=== PATIENT | male | born 1940 | race Caucasian/White ===

== ENCOUNTER 2016-03-18 11:38 | Inpatient (IN) | payer MEDICARE, MEDICAID ==
[~2016-03-18] VITALS: Ht 172.7 cm; Wt 62.1 kg
[2016-03-18] MEDS ORDERED: NALOXONE PREFILLED SYRINGE 2 MG/2 ML SYRINGE ONE (11:48)
[2016-03-18 11:55] LABS: BASOPHILS % (AUTO) 0.8 % (0.0-2.0); DIFF TOTAL % 100 %; EOSINOPHILS # (AUTO) 0.6 /CMM (0.0-0.7); HEMATOCRIT 31 % (39-51); HEMOGLOBIN 10.1 g/dL (13.5-17.5); LYMPHOCYTES # (AUTO) 1.4 /CMM (0.8-4.8); LYMPHOCYTES % (AUTO) 24.6 % (20.0-44.0); MEAN CORPUSCULAR HEMOGLOBIN 32 PG (26.0-33.0); MEAN CORPUSCULAR HGB CONC 33 g/dl (31.0-36.0); MEAN CORPUSCULAR VOLUME 97 fL (80-96); MONOCYTES # (AUTO) 0.3 /CMM (0.1-1.30); MONOCYTES % (AUTO) 5.3 % (2.0-12.0); NEUTROPHILS # (AUTO) 3.2 /CMM (1.8-8.9); NEUTROPHILS % (AUTO) 59.3 % (43.0-81.0); PLATELET COUNT (AUTO) 191 /CMM (150-450); WHITE BLOOD COUNT (AUTO) 5.5 K/uL (4.3-11.0)
[2016-03-18] MEDS ORDERED: NALOXONE HCL 0.4 MG/ML AMPUL IV ONE (12:00)
[2016-03-18 12:29] LABS: ANION GAP 13 (5-14); CALCIUM, SERUM 8.9 mg/dL (8.5-10.1); CARBON DIOXIDE 26 mmol/L (21-32); CHLORIDE 105 mmol/L (98-107); CREATININE 1.5 mg/dL (0.6-1.3); GLUCOSE 122 mg/dL (74-106); POTASSIUM 4.5 mmol/L (3.5-5.1); SODIUM SERUM 139 mmol/L (136-145); UREA NITROGEN, BLOOD 21 mg/dL (7-18)
[2016-03-18 12:32] LABS: INR 0.99 (0.87-1.13); PROTHROMBIN TIME 10.4 SECS (9.5-12.7)
[2016-03-18 12:35] LABS: ALANINE AMINOTRANSFERASE 34 U/L (12-78); ALBUMIN 3.4 g/dL (3.4-5.0); ASPARTATE AMINOTRANSFERASE 29 U/L (15-37); BILIRUBIN,DIRECT 0.1 mg/dL (0.0-0.2); BILIRUBIN,TOTAL 0.3 mg/dL (0.2-1.0); INDIRECT BILIRUBIN 0.2 mg/dL (0.0-1.1)
[2016-03-18 12:37] LABS: TROPONIN I < 0.017 ng/mL (0.00-0.056)
[2016-03-18] MEDS ORDERED: hydrALAZINE HCL IV 20 MG VIAL ONE (12:39)
[2016-03-18 12:52] LABS: KETONES,URINE Negative (NEGATIVE); LEUKOCYTE ESTERASE ,URINE Small (NEGATIVE)
[2016-03-18] MEDS ORDERED: IOHEXOL-350 100 ML VIAL IV ONE (12:52)
[2016-03-18] MEDS ORDERED: IV NS 0.9% 250 ML IV ONE (12:52)
[2016-03-18 12:53] LABS: ADD UA MICROSCOPIC YES
[2016-03-18 12:54] LABS: ADD URINE CULTURE NO
[2016-03-18] MEDS ORDERED: CEFTRIAXONE 1GM BAG (ER ONLY) 50 ML IV ONE ×2 (13:00→13:41)
[2016-03-18] MEDS ORDERED: hydrALAZINE HCL IV 20 MG VIAL IV ONE (13:00)
[2016-03-18] MEDS ORDERED: IV SET PRIMARY PUMP SET 1 EA INFUS.SET MC ONE ×2 (13:41→20:06)
[2016-03-18] MEDS ORDERED: ACETAMINOPHEN 325 MG TABLET PO PRN (14:00)
[2016-03-18] MEDS ORDERED: Z GUARD REMEDY 2 OZ OINT TP PRN (14:00)
[2016-03-18] MEDS ORDERED: MAG HYDROX/AL HYDROX/SIMETH 30 ML UDC PO PRN (14:00)
[2016-03-18] MEDS ORDERED: ZOLPIDEM TARTRATE 5 MG TABLET PO PRN (14:00)
[2016-03-18] MEDS ORDERED: MAGNESIUM HYDROXIDE 30 ML UDC PO PRN (14:00)
[2016-03-18] MEDS ORDERED: ONDANSETRON HCL/PF 4 MG/2 ML VIAL IVP PRN (14:00)
[2016-03-18] MEDS ORDERED: LABETALOL HCL IV 100MG VIAL ONE (14:14)
[2016-03-18] MEDS ORDERED: LABETALOL HCL IV 100MG VIAL IV ONE (14:30)
[2016-03-18] MEDS ORDERED: ASPIRIN 325 MG TABLET PO ONE (14:30)
[2016-03-18 16:00] VITALS: BP 176/85
[2016-03-18] MEDS: ENOXAPARIN SODIUM 40 MG/0.4 ML DISP.SYRIN SQ SCH (18:06)
[2016-03-18 20:00] VITALS: BP 145/76
[2016-03-18] MEDS: IV NS 0.9% 1,000 ML IV PRN (20:11)
[2016-03-18] MEDS ORDERED: MORPHINE SULFATE INJ 2 MG/ML DISP.SYRIN ONE (21:27)
[2016-03-18] MEDS: MORPHINE SULFATE INJ 2 MG/ML DISP.SYRIN IV PRN (21:34)
[2016-03-18] MEDS: ATORVASTATIN 40 MG TABLET PO SCH (21:35)
[2016-03-18] MEDS ORDERED: LORAZEPAM INJ 2 MG/ML VIAL ONE (22:40)
[2016-03-18] MEDS ORDERED: LORAZEPAM INJ 2 MG/ML VIAL IV ONE (23:00)
[2016-03-19] VITALS (8 sets, daily range): BP systolic 106–174; BP diastolic 65–81
[2016-03-19] MEDS ORDERED: MORPHINE SULFATE INJ 2 MG/ML DISP.SYRIN ONE (00:33)
[2016-03-19] MEDS: MORPHINE SULFATE INJ 2 MG/ML DISP.SYRIN IV PRN ×5 (00:44→21:33)
[2016-03-19] MEDS ORDERED: HYDROMORPHONE 1 MG/1 ML DISP.SYRIN ONE (05:14)
[2016-03-19] MEDS ORDERED: HYDROMORPHONE 1 MG/1 ML DISP.SYRIN IV PRN (05:30)
[2016-03-19] MEDS: PANTOPRAZOLE 40 MG TABLET.DR PO SCH (07:28)
[2016-03-19 08:04] LABS: BASOPHILS % (AUTO) 0.5 % (0.0-2.0); DIFF TOTAL % 100 %; EOSINOPHILS # (AUTO) 0.3 /CMM (0.0-0.7); EOSINOPHILS % (AUTO) 4.5 % (0.0-6.0); HEMATOCRIT 27 % (39-51); HEMOGLOBIN 9.2 g/dL (13.5-17.5); LYMPHOCYTES # (AUTO) 0.9 /CMM (0.8-4.8); LYMPHOCYTES % (AUTO) 16.4 % (20.0-44.0); MEAN CORPUSCULAR HEMOGLOBIN 32 PG (26.0-33.0); MEAN CORPUSCULAR HGB CONC 34 g/dl (31.0-36.0); MEAN CORPUSCULAR VOLUME 95 fL (80-96); MONOCYTES # (AUTO) 0.4 /CMM (0.1-1.30); MONOCYTES % (AUTO) 6.1 % (2.0-12.0); NEUTROPHILS # (AUTO) 4.2 /CMM (1.8-8.9); NEUTROPHILS % (AUTO) 72.5 % (43.0-81.0); PLATELET COUNT (AUTO) 196 /CMM (150-450); RED BLOOD CELL COUNT(AUTO) 2.89 MIL/uL (4.5-6.0); WHITE BLOOD COUNT (AUTO) 5.8 K/uL (4.3-11.0)
[2016-03-19] MEDS ORDERED: Z GUARD REMEDY 2 OZ OINT TP PRN (08:30)
[2016-03-19] MEDS ORDERED: HYDROGEL DRESSING 90 GM TUBE TP PRN (08:30)
[2016-03-19 08:32] LABS: THYROID STIMULATING HORMONE 1.137 uIU/mL (0.358-3.74)
[2016-03-19 08:50] LABS: CALCIUM, SERUM 8.4 mg/dL (8.5-10.1); CREATININE 1.3 mg/dL (0.6-1.3); PHOSPHORUS 3.7 mg/dL (2.5-4.9); POTASSIUM 4.4 mmol/L (3.5-5.1)
[2016-03-19] MEDS: Z GUARD REMEDY 2 OZ OINT TP SCH (09:01)
[2016-03-19] MEDS: HYDROGEL DRESSING 90 GM TUBE TP SCH (09:01)
[2016-03-19] MEDS: HYDROCODONE/APAP 5/325MG 1 EACH TABLET PO PRN ×3 (10:22→20:08)
[2016-03-19] MEDS: QUETIAPINE FUMARATE 25 MG TABLET PO SCH ×2 (10:23→17:14)
[2016-03-19] MEDS ORDERED: IV SET PRIMARY PUMP SET 1 EA INFUS.SET MC ONE (10:27)
[2016-03-19] MEDS ORDERED: ASPIRIN EC 325 MG TABLET.DR PO STA (14:59)
[2016-03-19] MEDS: MUPIROCIN OINT 2% 22 GM TUBE TP SCH (17:13)
[2016-03-19] MEDS: ENOXAPARIN SODIUM 40 MG/0.4 ML DISP.SYRIN SQ SCH (21:32)
[2016-03-19] MEDS: ATORVASTATIN 40 MG TABLET PO SCH (21:33)
[2016-03-20] VITALS: BP 165/66
[2016-03-20 04:00] VITALS: BP 192/78
[2016-03-20] MEDS: MUPIROCIN OINT 2% 22 GM TUBE TP SCH ×2 (04:41→18:05)
[2016-03-20] MEDS: MORPHINE SULFATE INJ 2 MG/ML DISP.SYRIN IV PRN ×4 (05:15→23:56)
[2016-03-20] MEDS: IV NS 0.9% 1,000 ML IV PRN ×2 (05:32→18:04)
[2016-03-20] MEDS: HYDROCODONE/APAP 5/325MG 1 EACH TABLET PO PRN ×2 (06:48→11:13)
[2016-03-20 08:00] VITALS: BP 155/35
[2016-03-20] MEDS: ESCITALOPRAM OXALATE (10 MG) 10 MG TABLET PO SCH (09:15)
[2016-03-20] MEDS: PANTOPRAZOLE 40 MG TABLET.DR PO SCH (09:15)
[2016-03-20] MEDS: QUETIAPINE FUMARATE 25 MG TABLET PO SCH ×2 (09:15→18:04)
[2016-03-20] MEDS: ASPIRIN EC 81 MG TABLET.DR PO SCH (09:15)
[2016-03-20] MEDS: HYDROGEL DRESSING 90 GM TUBE TP SCH (09:16)
[2016-03-20] MEDS: Z GUARD REMEDY 2 OZ OINT TP SCH (09:18)
[2016-03-20 12:00] VITALS: BP 134/40
[2016-03-20 12:20] LABS: BASOPHILS % (AUTO) 0.8 % (0.0-2.0); DIFF TOTAL % 100 %; EOSINOPHILS # (AUTO) 0.2 /CMM (0.0-0.7); EOSINOPHILS % (AUTO) 6.8 % (0.0-6.0); HEMATOCRIT 25 % (39-51); HEMOGLOBIN 8.5 g/dL (13.5-17.5); LYMPHOCYTES # (AUTO) 0.7 /CMM (0.8-4.8); LYMPHOCYTES % (AUTO) 19.7 % (20.0-44.0); MEAN CORPUSCULAR HEMOGLOBIN 32 PG (26.0-33.0); MEAN CORPUSCULAR HGB CONC 33 g/dl (31.0-36.0); MEAN CORPUSCULAR VOLUME 95 fL (80-96); MONOCYTES # (AUTO) 0.3 /CMM (0.1-1.30); MONOCYTES % (AUTO) 7.2 % (2.0-12.0); NEUTROPHILS # (AUTO) 2.4 /CMM (1.8-8.9); NEUTROPHILS % (AUTO) 65.5 % (43.0-81.0); PLATELET COUNT (AUTO) 161 /CMM (150-450); RED BLOOD CELL COUNT(AUTO) 2.68 MIL/uL (4.5-6.0); WHITE BLOOD COUNT (AUTO) 3.6 K/uL (4.3-11.0)
[2016-03-20 12:22] LABS: CALCIUM, SERUM 7.5 mg/dL (8.5-10.1); CREATININE 1.3 mg/dL (0.6-1.3)
[2016-03-20 16:00] VITALS: BP 194/70
[2016-03-20] MEDS ORDERED: ASPI-991 PO (16:24)
[2016-03-20] MEDS ORDERED: ATOR40TA PO (16:24)
[2016-03-20] MEDS ORDERED: hydrALAZINE HCL 50 MG TABLET PO SCH (19:00)
[2016-03-20] MEDS: METOPROLOL SUCCINATE 25 MG TAB.SR.24H PO SCH (19:16)
[2016-03-20 20:00] VITALS: BP 170/81
[2016-03-20] MEDS ORDERED: hydrALAZINE HCL 50 MG TABLET PO ONE (20:30)
[2016-03-20] MEDS: ATORVASTATIN 40 MG TABLET PO SCH (21:02)
[2016-03-20] MEDS: ENOXAPARIN SODIUM 40 MG/0.4 ML DISP.SYRIN SQ SCH (21:02)
[2016-03-21] VITALS (7 sets, daily range): BP systolic 108–202; BP diastolic 59–102
[2016-03-21] MEDS: MORPHINE SULFATE INJ 2 MG/ML DISP.SYRIN IV PRN (04:28)
[2016-03-21] MEDS: MUPIROCIN OINT 2% 22 GM TUBE TP SCH ×2 (04:29→15:48)
[2016-03-21] MEDS: QUETIAPINE FUMARATE 25 MG TABLET PO SCH ×2 (09:00→17:00)
[2016-03-21] MEDS: Z GUARD REMEDY 2 OZ OINT TP SCH (09:00)
[2016-03-21] MEDS: HYDROGEL DRESSING 90 GM TUBE TP SCH (09:00)
[2016-03-21] MEDS: PANTOPRAZOLE 40 MG TABLET.DR PO SCH (10:11)
[2016-03-21] MEDS: METOPROLOL SUCCINATE 25 MG TAB.SR.24H PO SCH (10:12)
[2016-03-21] MEDS: ASPIRIN EC 81 MG TABLET.DR PO SCH (10:13)
[2016-03-21] MEDS: ESCITALOPRAM OXALATE (10 MG) 10 MG TABLET PO SCH (10:13)
[2016-03-21] MEDS: hydrALAZINE HCL 50 MG TABLET PO SCH ×3 (10:14→17:00)
[2016-03-21] MEDS ORDERED: VALSARTAN 80 MG TABLET PO SCH (10:30)
[2016-03-21] MEDS ORDERED: Hydralazine Hcl PO (12:19)
[2016-03-21] MEDS ORDERED: Valsartan PO (12:19)
[2016-03-21] MEDS ORDERED: IV NS 0.9% 250 ML IV ONE (13:36)
[2016-03-21] MEDS ORDERED: CT SWABBABLE VALVE TRANS SET 1 EA INFUS.SET MC ONE (13:36)
[2016-03-21] MEDS ORDERED: IOHEXOL-350 100 ML VIAL IV ONE (13:36)
[2016-03-21] MEDS ORDERED: CLONIDINE HCL 0.1 MG TABLET PO SCH ×2 (18:00)
[2016-03-21] MEDS: HYDROCODONE/APAP 5/325MG 1 EACH TABLET PO PRN (19:58)
[2016-03-21] MEDS: ENOXAPARIN SODIUM 40 MG/0.4 ML DISP.SYRIN SQ SCH (20:00)
== END 2016-03-21 21:23 | DRG 56 ==
LOC: ER 11:42 → TELE-TD 14:23 → TELE1 03-19 10:19 → MEDSG1 03-21 18:29
DX: I69.354 Hemiplegia and hemiparesis following cerebral infarction affecting left non-dominant side (principal); N17.0 Acute kidney failure with tubular necrosis; N39.0 Urinary tract infection, site not specified; I12.9 Hypertensive chronic kidney disease with stage 1 through stage 4 chronic kidney disease, or unspecified chronic kidney disease; N18.9 Chronic kidney disease, unspecified; N40.0 Benign prostatic hyperplasia without lower urinary tract symptoms; R29.810 Facial weakness; F32.9 Major depressive disorder, single episode, unspecified; D64.9 Anemia, unspecified; F10.20 Alcohol dependence, uncomplicated; L89.159 Pressure ulcer of sacral region, unspecified stage; F01.50 Vascular dementia, unspecified severity, without behavioral disturbance, psychotic disturbance, mood disturbance, and anxiety; I27.2 Other secondary pulmonary hypertension; I65.21 Occlusion and stenosis of right carotid artery; I66.09 Occlusion and stenosis of unspecified middle cerebral artery; I66.29 Occlusion and stenosis of unspecified posterior cerebral artery; R13.10 Dysphagia, unspecified
CPT/HCPCS: 36415; 70450-TC; 70496-TC; 70498-TC; 70551-TC; 71010-TC; 80048-TC; 80061-TC; 80076-TC; 81000-TC; 82962-TC; 83605-TC; 83735-TC; 84100-TC; 84443-TC; 84484-TC; 85025-TC; 85730-TC; 87040-TC; 87081-TC; 92611-TC; 93307-TC; 93880-TC; 94799-TC; 97001-TC; 97003-TC; A4606; A6248; J0360; J0696; J1170; J1650; J2060; J2270; J2310; J3490; J7030; J7050; Q9967; Z7610

== ENCOUNTER 2017-02-18 07:19 | Emergency (ER) | payer MEDICARE, MEDICAID ==
[~2017-02-18] VITALS: Ht 172.7 cm; Wt 63.5 kg
[~2017-02-18 07:19] MED LIST: ASPI-1152 PO; ATOR40TA PO; Hydralazine Hcl PO; Valsartan PO
--- NOTE | 2017-02-18 07:35 | NUR ---
pt bib ra from so c/o AMS per facility. pt is a/ox2 upon assessment, but repeatedly yelling and unooperative despite education, reorientation, and mutliple explanations. pt is pointing to and tugging on penis. no uop or stool noted in diaper. resp even unlabored, saturating 99-100% on room air. skin cool, mottled. with chronic left sided hemiparesis. in er bed 07 on monitor.
--- NOTE | 2017-02-18 07:40 | NUR ---
attempted to obtain EKG with EMT. pt moving too much despite education on need to stay still. will retry later. notified.
[2017-02-18] MEDS: IV NS 0.9% 1,000 ML BAG IV ONE ×2 (07:53→09:49)
--- NOTE | 2017-02-18 07:57 | NUR ---
no urine output obtained by in and out cath. notified. will try again later.
[2017-02-18 08:05] LABS: CALCIUM, SERUM 8.1 mg/dL (8.5-10.1); CARBON DIOXIDE 25 mmol/L (21-32); CHLORIDE 103 mmol/L (98-107); CREATININE 2.4 mg/dL (0.6-1.3); EOSINOPHILS % (AUTO) 0.2 % (0.0-6.0); GLUCOSE 222 mg/dL (74-106); HEMATOCRIT 27 % (39-51); MEAN CORPUSCULAR HEMOGLOBIN 33 PG (26.0-33.0); MEAN CORPUSCULAR HGB CONC 34 g/dl (31.0-36.0); MEAN CORPUSCULAR VOLUME 98 fL (80-96); MONOCYTES # (AUTO) 0.7 /CMM (0.1-1.30); MONOCYTES % (AUTO) 2.7 % (2.0-12.0); NEUTROPHILS # (AUTO) 22.2 /CMM (1.8-8.9); NEUTROPHILS % (AUTO) 89.1 % (43.0-81.0); PLATELET COUNT (AUTO) 296 /CMM (150-450); RDW COEFFICIENT OF VARIATION 13.2 (11.5-15.0); RED BLOOD CELL COUNT(AUTO) 2.73 MIL/uL (4.5-6.0); SODIUM SERUM 138 mmol/L (136-145); UREA NITROGEN, BLOOD 27 mg/dL (7-18); WHITE BLOOD COUNT (AUTO) 24.9 K/uL (4.3-11.0)
[2017-02-18] MEDS ORDERED: CRAN3875 PO (08:07)
[2017-02-18] MEDS ORDERED: QUET25TA PO (08:07)
[2017-02-18] MEDS ORDERED: DOCU-141 PO (08:07)
[2017-02-18] MEDS ORDERED: THIA100T74 PO (08:07)
[2017-02-18] MEDS ORDERED: HYDR-4077 PO (08:07)
[2017-02-18] MEDS ORDERED: ATOR40TA PO (08:07)
[2017-02-18] MEDS ORDERED: CRAN425C6 PO (08:07)
[2017-02-18] MEDS ORDERED: ACET-868 PO (08:07)
[2017-02-18] MEDS ORDERED: CALC500T51 PO (08:07)
[2017-02-18] MEDS ORDERED: CLON0.5T PO (08:07)
[2017-02-18] MEDS ORDERED: CLOP75TA15 PO (08:07)
[2017-02-18] MEDS ORDERED: HYDR-552 PO (08:07)
[2017-02-18] MEDS ORDERED: BISA10SU8 RC (08:07)
[2017-02-18] MEDS ORDERED: ASPI-1169 PO (08:07)
[2017-02-18] MEDS ORDERED: MULT-213 PO (08:07)
[2017-02-18] MEDS ORDERED: METO-358 PO (08:07)
[2017-02-18] MEDS ORDERED: LACT1CAP61 PO (08:07)
[2017-02-18] MEDS ORDERED: IPRA3AMP IH (08:07)
[2017-02-18] MEDS ORDERED: SENN-167 PO (08:07)
[2017-02-18] MEDS ORDERED: FOLI1TAB16 PO (08:07)
[2017-02-18] MEDS ORDERED: ASCO-340 PO (08:07)
[2017-02-18 08:10] LABS: ALANINE AMINOTRANSFERASE 13 U/L (12-78); ALBUMIN 3.4 g/dL (3.4-5.0); ALKALINE PHOSPHATASE 65 U/L (46-116); ASPARTATE AMINOTRANSFERASE 15 U/L (15-37); BILIRUBIN,DIRECT 0.1 mg/dL (0.0-0.2); BILIRUBIN,TOTAL 0.3 mg/dL (0.2-1.0); INR 0.91 (0.87-1.13); PROTHROMBIN TIME 9.5 SECS (9.5-12.7); TOTAL PROTEIN, SERUM 7.3 g/dL (6.4-8.2)
[2017-02-18 08:12] LABS: TROPONIN I 0.018 ng/mL (0.00-0.056)
[2017-02-18 08:12] LABS: ABG BASE EXCESS -4.2 mmol/L; ABG PCO2 29.8 mmHg (35.0-45.0); ABG PH 7.432 (7.350-7.450); ABG PO2 93.2 mmHg (75.0-100.0); AaDO2 20.8 mmHg; COHb 0.3 % (0.5-1.5); MetHb 0.8 % (0.0-1.5); O2Hb 94.9 % (94.0-97.0); SITE, ABG Right Radial; VENT MODE, BG Room Air
[2017-02-18 08:17] LABS: BAND % (MANUAL) 2 % (0.0-5.0); LYMPHOCYTES % (MANUAL) 14 % (16-48); MONOCYTES % (MANUAL) 4 % (0-11.0); NEUTROPHILS % (MANUAL) 80 (42-76)
[2017-02-18] MEDS ORDERED: ONDANSETRON HCL/PF 4 MG/2 ML VIAL ONE (08:29)
[2017-02-18] MEDS ORDERED: MORPHINE SULFATE INJ 2 MG/ML DISP.SYRIN ONE ×2 (08:30→08:46)
[2017-02-18] MEDS: MORPHINE SULFATE INJ 10 MG/ML DISP.SYRIN IV ONE (08:33)
[2017-02-18] MEDS: ONDANSETRON HCL/PF 4 MG/2 ML VIAL IV ONE (08:34)
[2017-02-18] MEDS: MORPHINE SULFATE INJ 4 MG/ML DISP.SYRIN IV ONE (08:48)
--- NOTE | 2017-02-18 08:49 | NUR ---
PT STILL C/O ABD PAIN AFTER MORPHINE ADMIN; NOW C/O UPPER ABD PAIN INSTEAD OF LOWER. MD NOTIFIED. ORDER FOR 2ND DOSE OF MORPHINE RECEIVED AND ADMINISTEREED.
--- NOTE | 2017-02-18 08:50 | NUR ---
TRANSPORTED TO CT IN STABLE CONDITION
[2017-02-18] MEDS ORDERED: PIPERACILLIN /TAZOBACTAM 3.375 G VIAL IV ONE (09:37)
--- NOTE | 2017-02-18 09:41 | NUR ---
PT'S SON COSME SPEAKING WITH
--- NOTE | 2017-02-18 09:44 | NUR ---
URINE OBTAINED CALLED LAB FOR PICKUP
--- NOTE | 2017-02-18 09:47 | NUR ---
CALLED [facility] AND PRESENTED THE CASE. AWAITING TO CALL US BACK.
[2017-02-18] MEDS: PIPERACILLIN /TAZOBACTAM 3.375 G in IV D5W 50 ML IV ONE (09:49)
--- NOTE | 2017-02-18 09:58 | NUR ---
[facility] [place] transfer center called, unable to take the case, no ICU bed available.
[2017-02-18 10:02] LABS: APPEARANCE,URINE Cloudy (CLEAR); BILIRUBIN,URINE SMALL (NEGATIVE); BLOOD, URINE Large Ery/uL (NEGATIVE); COLOR,URINE Dark Yellow (YELLOW); KETONES,URINE Trace (NEGATIVE); LEUKOCYTE ESTERASE ,URINE Small (NEGATIVE); NITRITE, URINE Negative (NEGATIVE); PH,URINE 5.5 (5.0-8.0); PROTEIN,URINE >=300 mg/dl (NEGATIVE); UGLUCOSE Negative (NEGATIVE); UROBILINOGEN,URINE 0.2 EU/dL (0.2)
--- NOTE | 2017-02-18 10:04 | NUR ---
SPOKE WITH JESSE GOTTLIEB RN FROM [facility] [phone]. WILL FAX RADIOLOGY REPORT TO [phone] SWANN FOR THEIR VASCULAR MD
--- NOTE | 2017-02-18 10:05 | NUR ---
FAXED RADIOLOGY REPORT TO [facility]
--- NOTE | 2017-02-18 10:06 | NUR ---
NOTIFIED OF INCREASING BP. WILL CONTINUE MONITORING CLOSELY
[2017-02-18 10:10] LABS: BACTERIA,URINE Rare /HPF (None Seen); RBC,URINE 80-100 /HPF (0-2); SQUAMOUS EPITHELIAL CELL,UR Few /HPF (None Seen)
--- NOTE | 2017-02-18 10:19 | NUR ---
CALLED [facility] AND FAXED THE FACESHEET AND CT RESULTS.
--- NOTE | 2017-02-18 10:31 | NUR ---
PER TEJAL UNABLE TO REACH VASCULAR SURGEONS AT THIS TIME, AWARE
[2017-02-18] MEDS ORDERED: MORPHINE SULFATE INJ 4 MG/ML DISP.SYRIN ONE (10:34)
[2017-02-18] MEDS: MORPHINE SULFATE INJ 2 MG/ML DISP.SYRIN IV ONE (10:36)
--- NOTE | 2017-02-18 10:36 | NUR ---
[facility] called and presented case to Tana GODFREY, chris, notes and CT report faxed as requested
--- NOTE | 2017-02-18 10:50 | NUR ---
DR SADLER ON PHONE WITH BEKAH MENDEZ FROM [facility]. ACCEPTED BY [facility] DR TRIVEDI.
--- NOTE | 2017-02-18 10:55 | NUR ---
PT'S DAUGHTER VIET CONSENTS TO TRANSFER, CONSENT SIGNED. SON AND DAUGHTER AT BEDSIDE. PT APPEARS COMFORTABLE AFTER MORPHINE ADMIN. EDUCATED FAMILY TO NOT TOUCH ABDOMEN AND TO STOP PT FROM PRESSING ON BELLY.
--- NOTE | 2017-02-18 11:02 | NUR ---
[facility] CALLED; UNABLE TO FIND BED AT THIS TIME. DR SADLER CANCELED [facility] D/T ACCEPTANCE AT [facility]
--- NOTE | 2017-02-18 11:04 | NUR ---
BEKAH MENDEZ FROM [facility] CALLED BACK. SHE STATES THEY DO NOT HAVE A BED AVAILABLE CURRENTLY AND ARE WORKING TO OPEN ONE, WILL KEEP US UPDATED. WILL CONTINUE TO SEARCH FOR PLACEMENT.
--- NOTE | 2017-02-18 11:06 | NUR ---
[facility] CALLED AND NOTIFIED TO CONTINUE TO WORK ON A TRANSFER
--- NOTE | 2017-02-18 11:11 | NUR ---
NOTED WITH HYPERTENSION. BP RECHECKED. NOTIFIED. ORDERS NOTED. Addendum: 02/18/17 at 1113 by [facility] CORRECTION: AWAITING ORDERS
--- NOTE | 2017-02-18 11:16 | NUR ---
[facility] CALLED, SPOKE WITH KENJI GODFREY FOR VASCULAR, STILL WAITING FOR AN AVAILABLE BED.
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
[2017-02-18] MEDS ORDERED: LABETALOL HCL IV 100MG VIAL ONE (11:21)
--- NOTE | 2017-02-18 11:23 | NUR ---
CALLED [facility] FOR TRANSFER TO HIGHER LEVEL OF CARE. SPOKE WITH [employer] WHO DID NOT HAVE ANY BEDS AVAILABLE FOR THE PATIENT.
[2017-02-18] MEDS: LABETALOL HCL IV 100MG VIAL IV ONE ×2 (11:24→11:57)
--- NOTE | 2017-02-18 11:25 | NUR ---
CALL RECEIVED FROM JESSE, PATIENT ACCEPTED BY DR FLEMING, GOING TO [facility], WANTSW TO BE CALLED AT [phone] WHEN PATIENT LEAVES THE ER
[2017-02-18 11:57] VITALS: BP 162/78
--- NOTE | 2017-02-18 11:58 | NUR ---
REPORT GIVEN TO [employer] REP FOR AMBULNZ FOR TRANSFER TO [facility]. JESSE AT [facility] ER NOTIFIED OF PT LEAVING. ALL PAPERWORK AND CD WITH PT IN AMBULANCE. TRANSPORTED IN CRITICAL CONDITION VIA CODE 3 ACLS.
== END 2017-02-18 12:01 | disposition short-term general hospital (02) ==
LOC: ER 07:20
DX: I71.3 Abdominal aortic aneurysm, ruptured (principal); G93.40 Encephalopathy, unspecified; R09.02 Hypoxemia; N39.0 Urinary tract infection, site not specified; D72.829 Elevated white blood cell count, unspecified; A41.9 Sepsis, unspecified organism; R65.20 Severe sepsis without septic shock; I12.9 Hypertensive chronic kidney disease with stage 1 through stage 4 chronic kidney disease, or unspecified chronic kidney disease; N18.9 Chronic kidney disease, unspecified; N40.0 Benign prostatic hyperplasia without lower urinary tract symptoms; E78.5 Hyperlipidemia, unspecified; D64.9 Anemia, unspecified; F32.9 Major depressive disorder, single episode, unspecified; Z79.82 Long term (current) use of aspirin; Z87.01 Personal history of pneumonia (recurrent); Z86.73 Personal history of transient ischemic attack (TIA), and cerebral infarction without residual deficits
CPT/HCPCS: 36415; 36600; 71010; 74176; 80048; 80076; 81001; 83605 ×2; 84484; 85025; 85730; 86850; 87040 ×2; 87086; 93005; 96361; 96365; 96374; 96375; 96376; 99291; 99292; A4606; J2270 ×3; J2405; J2543 ×2; J3490; J7030 ×2; J7060; 81000-TC; Z7610